=== PATIENT | female | born 1995 | race Caucasian/White ===

== ENCOUNTER 2016-07-02 23:38 | Emergency (ER) | payer MEDICAID ==
[2016-07-03 02:20] VITALS: BP 121/77
== END 2016-07-03 02:12 | disposition home or self-care (01) ==
LOC: ED 23:38
DX: M54.41 Lumbago with sciatica, right side (principal); M79.604 Pain in right leg
CPT/HCPCS: J1885

== ENCOUNTER 2019-05-07 20:52 | Emergency (ER) | payer MEDICAID ==
[~2019-05-07] VITALS: Ht 162.6 cm; Wt 104.6 kg
[2019-05-07 20:55] VITALS: BP 116/59; Ht 162.6 cm; Wt 104.6 kg
== END 2019-05-07 22:54 | disposition home or self-care (01) ==
LOC: ED 20:52
DX: J02.9 Acute pharyngitis, unspecified (principal)